=== PATIENT | male | born 1995 | race Caucasian/White ===

== ENCOUNTER 2020-01-10 12:23 | Emergency (ER) | payer OTHER, SELFPAY ==
[2020-01-10 12:31] VITALS: BP 139/68; PULSE 83; RESP 12; TEMP 36.7; O2SAT 100
--- NOTE | 2020-01-10 13:06 | ED.WOUNDLAC ---
HPI - Wound/Laceration General Chief Complaint: Wound/Laceration Stated Complaint: lt wrist laceration Time Seen by Provider: 01/10/20 12:25 Source: patient Mode of arrival: ambulatory Limitations: no limitations History of Present Illness HPI narrative: 24-year-old male presents to [facility] with complaints of laceration to his left wrist after cutting his wrist on a wine glass at work prior to arrival. Patient reports that his last tetanus shot is within the past 5 years. Patient denies heavy bleeding, bruising, numbness or tingling. Onset (ago): minute(s) (30) Extremity Location: Left: wrist Body four view annotation: 1. 1.5cm laceration Place: work Patient tetanus UTD: Yes Context: accidental Associated symptoms: none Related Data Home Medications Medication Instructions Recorded Confirmed No Home Medications 01/10/20 01/10/20 Allergies Allergy/AdvReac Type Severity Reaction Status Date / Time poison erich extract Allergy Mild Rash Verified 01/10/20 12:32 poison sumac extract Allergy Mild Rash Verified 01/10/20 12:32 Review of Systems Constitutional: Constitutional: Denies chills, Denies fever(s) and Denies weakness Cardiovascular: Cardiovascular: Denies chest pain, Denies rapid heart rate and Denies slow heart rate Respiratory: Respiratory: Denies cough, Denies dyspnea and Denies wheezing Gastrointestinal: Gastrointestinal: Denies abdominal pain, Denies diarrhea, Denies nausea and Denies vomiting Integumentary/Breasts: Comments: laceration to left wrist Neurologic: Denies vertigo, Denies dizziness and Denies syncope PMFSH Social History Social History (Updated 01/10/20 @ 13:08 by Niya Casanova APRN) Smoking status: Current some day smoker Comments At time of signature, I agree with nursing past medical, surgical, social and family history. There is no relevant family history pertinent to the presenting complaint. Exam Const: General: no acute distress and alert Nutritional Appearance: well nourished Orientation/consciousness: patient oriented x3 Neck: Neck: normal visual inspection Resp: Effort & Inspection: normal respiratory effort Auscultation: clear to auscultation bilaterally Cardio: Rate: regular rate Rhythm: regular rhythm and regular rhythm Heart sounds: no murmurs Skin: General skin exam: normal color, no jaundice and no pallor Rashes: no rashes Wounds: wounds noted Other: 1.5 cm gaping laceration noted to palmar aspect of left wrist Neuro: General: patient oriented x3 and moves all extremities Speech: normal speech Extrem: Other: 1.5 cm gapping laceration noted to palmar aspect of left wrist. There is no heavy bleeding, purulent drainage, streaking erythema or signs of infection noted Psych: Appearance: grossly normal Mental Status: mental status grossly normal Affect: normal affect Attitude: cooperative Thought content: Yes Normal thought content present Course Vital Signs Vital signs: Vital Signs Temperature 36.7 C 01/10/20 12:31 Pulse Rate 83 01/10/20 12:31 Respiratory Rate 12 01/10/20 12:31 Blood Pressure 139/68 01/10/20 12:31 Pulse Oximetry 100 01/10/20 12:31 Temperature 36.7 C 01/10/20 12:31 Pulse Rate 83 01/10/20 12:31 Respiratory Rate 12 01/10/20 12:31 Blood Pressure 139/68 01/10/20 12:31 Pulse Oximetry 100 01/10/20 12:31 Procedures Laceration Laceration 1: Date: 01/10/20 Time: 13:10 Site: upper extremity (Palmar aspect of left wrist) Side (If applicable): left Size (cm): 1.5 Description: linear Depth: simple, single layer Local Anesthetic: lidocaine 1% Amount of anesthesia used (mL): 2 Pre-repair: irrigated ====== Skin Level ====== Skin layer closed with: nylon Size (cm): 5-0 Number of sutures: 5 Technique: simple, interrupted ====== Subcutaneous Layer ====== ====== Muscle Layer ======
== END 2020-01-10 13:23 | disposition home or self-care (01) ==
PROVIDERS: Emergency Provider Nurse Practitioner Family
DX: S61.512A Laceration without foreign body of left wrist, initial encounter (principal); W25.XXXA Contact with sharp glass, initial encounter; Y99.0 Civilian activity done for income or pay; F17.200 Nicotine dependence, unspecified, uncomplicated
CPT/HCPCS: 12001; 99202; G0463

== ENCOUNTER 2020-01-17 09:17 | Emergency (ER) | payer OTHER, SELFPAY ==
[2020-01-17 09:36] VITALS: BP 129/87; PULSE 89; RESP 16; TEMP 35.7; O2SAT 100
--- NOTE | 2020-01-17 09:52 | ED.GENADULT ---
HPI - General Adult General Chief complaint: Wound/Laceration Stated complaint: remove stitches Time Seen by Provider: 01/17/20 09:52 Source: patient and RN notes reviewed Mode of arrival: ambulatory Limitations: no limitations History of Present Illness HPI narrative: 24-year-old male presents for suture removal. Reports he received 5 stitches 1 week ago after he sustained a laceration on 1 glass. He reports small amount of redness around the sutures, denies any drainage. MD complaint: Suture removal Related Data Home Medications Medication Instructions Recorded Confirmed No Home Medications 01/10/20 01/10/20 Allergies Allergy/AdvReac Type Severity Reaction Status Date / Time poison erich extract Allergy Mild Rash Verified 01/10/20 12:32 poison sumac extract Allergy Mild Rash Verified 01/10/20 12:32 Review of Systems Review of Systems: Narrative: CONSTITUTIONAL: Denies malaise, chills, sweats, or fever. SKIN: Denies rash or itching. Reports 5 intact sutures with small amount of redness MUSCULOSKELETAL: Denies musculoskeletal pain NEUROLOGIC: Denies numbness, weakness All systems reviewed & are unremarkable except as noted in HPI and below PMFSH Social History Social History (Updated 01/10/20 @ 13:08 by Niya Casanova, ABNER) Smoking status: Current some day smoker Comments At time of signature, agree with nursing past medical, surgical, social and family history. There is no relevant family history pertinent to the presenting complaint Exam Narrative: Exam Narrative: GENERAL: Well-appearing, well-nourished, and in no acute distress. HEAD: Normocephalic EYES: PERRLA, conjunctivae clear ENT: Mucous membranes moist. NECK: Supple. CHEST: No respiratory distress. Speaks in full sentences. HEART: Regular rate and rhythm. SKIN: Warm, dry, no rash. 5 intact sutures noted to the left arm with small amount of erythema surrounding suture insertion sites NEURO: Alert and oriented x3. PSYCH: Normal mood and affect Course Course Emergency Course: Patient is aware of diagnosis, understands and agrees to treatment plan. Anticipatory guidance given. Patient agrees to follow-up as directed and is aware of reasons to seek care at the emergency department. Portions of this record may have been created with voice recognition software Vital Signs Vital signs: Vital Signs Temperature 96.2 F L 01/17/20 09:36 Pulse Rate 89 01/17/20 09:36 Respiratory Rate 16 01/17/20 09:36 Blood Pressure 129/87 01/17/20 09:36 Pulse Oximetry 100 01/17/20 09:36 Temperature 96.2 F L 01/17/20 09:36 Pulse Rate 89 01/17/20 09:36 Respiratory Rate 16 01/17/20 09:36 Blood Pressure 129/87 01/17/20 09:36 Pulse Oximetry 100 01/17/20 09:36 Reviewed. Pt has been instructed to follow up with his primary care provider within the next week regarding his elevated blood pressure today. Medical Decision Making MDM Narrative Medical decision making narrative: Verbal consent was obtained. Wound without induration or discharge; small amount of erythema noted. 5 sutures completely removed in a sterile fashion, wound slightly gaping after suture removal. Steri-Strips applied, anticipatory guidance given. Patient tolerated procedure well, no complications. Patient advised to look for and return for any signs of infection such as redness, swelling, discharge, or worsening pain. Vital Signs Vital Signs: Vital Signs Temperature 96.2 F L 01/17/20 09:36 Pulse Rate 89 01/17/20 09:36 Respiratory Rate 16 01/17/20 09:36 Blood Pressure 129/87 01/17/20 09:36 Pulse Oximetry 100 01/17/20 09:36 Temperature 96.2 F L 01/17/20 09:36 Pulse Rate 89 01/17/20 09:36 Respiratory Rate 16 01/17/20 09:36 Blood Pressure 129/87 01/17/20 09:36 Pulse Oximetry 100 01/17/20 09:36 Critical Care Time Critical Care Time Critical Care Time: No Discharge Plan Discharge Clinical Impression: Visit for suture rem
== END 2020-01-17 10:07 | disposition home or self-care (01) ==
PROVIDERS: Emergency Provider Nurse Practitioner
DX: S51.812D Laceration without foreign body of left forearm, subsequent encounter (principal); W25.XXXD Contact with sharp glass, subsequent encounter; F17.200 Nicotine dependence, unspecified, uncomplicated
CPT/HCPCS: 99211; G0463

== ENCOUNTER 2023-09-19 08:34 | Emergency (ER) | payer OTHER, SELFPAY ==
[2023-09-19 08:48] VITALS: BP 112/68; PULSE 74; RESP 18; TEMP 36.8; O2SAT 99
--- NOTE | 2023-09-19 08:49 | ED.URI ---
HPI - URI/Sore Throat General Chief Complaint: Fever Stated Complaint: Fever stomach upset sinus Time Seen by Provider: 09/19/23 08:49 Source: patient Mode of arrival: ambulatory Limitations: no limitations History of Present Illness HPI Narrative: 28 yo M presents with c/o nasal congestion, PND, cough, nausea, headaches for 1 wk. Reports intermittent fever and fatigue. [place] better for 3 days and then had fever again last night. Denies SOB/CP. all systems reviewed and negative except as noted above. Related Data Allergies Allergy/AdvReac Type Severity Reaction Status Date / Time poison erich extract Allergy Mild Rash Verified 09/19/23 09:16 poison sumac extract Allergy Mild Rash Verified 09/19/23 09:16 Review of Systems Review of Systems: CONSTITUTIONAL: reports fever, chills, or sweats. EYES: Denies visual changes, redness, or discharge. ENT: Reports rhinorrhea, congestion. Denies sore throat, or otalgia. CARDIOVASCULAR: Denies chest pain, palpitations, or edema. RESPIRATORY: Denies cough or dyspnea. GASTROINTESTINAL: Denies abdominal pain, nausea, vomiting, or diarrhea. GENITOURINARY: Denies dysuria or hematuria. SKIN: Denies rash or itching. MUSCULOSKELETAL: Denies back pain, joint pain, or myalgia. NEUROLOGIC: reports headache. Denies numbness, or weakness. PSYCHIATRIC: Denies anxiety or depression. All other systems reviewed are negative, except as documented in HPI. PMFSH Social History Social History (Updated 01/10/20 @ 13:08 by Niya Casanova, PENOLOGY TEACHER) Smoking status: Current some day smoker Comments At time of signature, agree with nursing past medical, surgical, social and family history. There is no relevant family history pertinent to the presenting complaint. Exam Narrative: GENERAL: This is a well-nourished, well-developed patient, ill-appearing but no acute distress HEAD: normocephalic, atraumatic. EYES: PERRL. Sclera clear/white. Vision is grossly intact. EARS: External ears normal, auditory canals clear and without drainage, fluid bilateral TMs. Right TM is erythematous without perforation. Hearing grossly intact. NOSE: External nose normal with Nasal congestion, erythema and swelling to bilateral nares THROAT: Mucous membranes moist, erythema with clear postnasal drainage NECK: Neck supple, non-tender without lymphadenopathy, masses or thyromegaly. CARDIOVASCULAR: Regular rate and rhythm without murmurs, gallops, or rubs. RESPIRATORY: Clear to auscultation. Breath sounds equal bilaterally. No wheezes, rales, or rhonchi. SKIN: warm, Dry, intact with no suspicious lesions or rash, good texture and turgor. NEURO: awake, alert, and oriented to person, place and time. There were no obvious focal neurologic abnormalities. EXTREMITIES: No joint tenderness, effusion, or edema noted. Course Course Level of Care: Express Care Visit Vital Signs Vital signs: Vital Signs Temperature 36.8 C 09/19/23 08:48 Pulse Rate 74 09/19/23 08:48 Respiratory Rate 18 09/19/23 08:48 Blood Pressure 112/68 09/19/23 08:48 Pulse Oximetry 99 09/19/23 08:48 Oxygen Delivery Room Air 09/19/23 08:48 Temperature 36.8 C 09/19/23 08:48 Pulse Rate 74 09/19/23 08:48 Respiratory Rate 18 09/19/23 08:48 Blood Pressure 112/68 09/19/23 08:48 Pulse Oximetry 99 09/19/23 08:48 Oxygen Delivery Room Air 09/19/23 08:48 reviewed MDM - URI/Sore Throat MDM Narrative Medical decision making narrative: will treat patient with antibiotic due to symptom Duration and exam findings. patient nontoxic. Vital signs normal. Patient is aware of diagnosis, understands and agrees to treatment plan. Anticipatory guidance given. Patient agrees to follow-up as directed and is aware of reasons to seek care at the emergency department. Portions of this record may have been created with voice recognition software Differential Diagnosis Differential diagnosis: Likely upper respiratory
[2023-09-19 09:19] LABS: EDINFLUASCREEN Negative; EDINFLUBSCREEN Negative
== END 2023-09-19 09:16 | disposition home or self-care (01) ==
PROVIDERS: Emergency Provider Nurse Practitioner Family; PCP Family Medicine
DX: J01.90 Acute sinusitis, unspecified (principal); H65.01 Acute serous otitis media, right ear; F17.200 Nicotine dependence, unspecified, uncomplicated
CPT/HCPCS: 87426; 87804; 99213; G0463